=== PATIENT | male | born 2000 | race Caucasian/White ===

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

== ENCOUNTER 2022-11-17 13:50 | Emergency (ER) | payer BC, OTHER ==
[~2022-11-17] VITALS: Ht 182.9 cm; Wt 104.3 kg
[2022-11-17 14:25] VITALS: BP 139/68; PULSE 68; RESP 18; TEMP 98; O2SAT 98
[2022-11-17] MEDS ORDERED: ACET-10509 PO (15:47)
[2022-11-17] MEDS ORDERED: IBUP-2213 PO (15:47)
--- NOTE | 2022-11-17 16:03 | NUR ---
Patient discharged with v/s stable. Written and verbal after care instructions given and explained. Patient verbalized understanding. Ambulatory with steady gait. All questions addressed prior to discharge. Advised to follow up with PMD.
== END 2022-11-17 15:55 | disposition home or self-care (01) ==
LOC: MED 13:50
DX: M72.2 Plantar fascial fibromatosis (principal); Z79.899 Other long term (current) drug therapy
CPT/HCPCS: 99282